=== PATIENT | female | born 1965 | race African-American/Black ===

== ENCOUNTER 2016-06-28 14:25 | Inpatient (IN) | payer OTHER ==
[2016-06-28 16:48] VITALS: BMI 24.3
--- NOTE | 2016-06-28 18:12 | HP ---
CIWA Score - CIWA Score Nausea/Vomitin Muscle Tremors: 3 Anxiety: 4-Mod. Anxious/Guarded Agitation: 4-Moderately Restless Paroxysmal Sweats: 1-Minimal Palms Moist Orientation: 1-Uncertain about Date Tacttile Disturbances: 3-Moderate Itch/Numb/Burn Auditory Disturbances: 0-None Visual Disturbances: 0-None Headache: 0-None Present CIWA-Ar Total Score: 18 Admission ROS BHS - HPI Chief Complaint: withdrawal sx Allergies/Adverse Reactions: Allergies Allergy/AdvReac Type Severity Reaction Status Date / Time Penicillins Allergy Verified 06/28/16 18:32 History of Present Illness: 50 years old female with long history of alcohol nicotine dependence has asthma arthritis of the knee, diabetes ii hypertension dry skin and bipolar is, longest sobriety 8 years admitted to detox Exam Limitations: No Limitations - Ebola screening Have you traveled outside of the country in the last 21 days: No Have you had contact with anyone from an Ebola affected area: No Have you been sick,other than usual withdrawal symptoms: No Do you have a fever: No - Review of Systems Constitutional: Chills, Loss of Appetite, Changes in sleep, Unintentional Wgt. Loss EENT: reports: Other (eye glasses) Respiratory: reports: SOB with Exertion Cardiac: reports: No Symptoms Reported GI: reports: Nausea, Poor Appetite, Poor Fluid Intake, Vomiting, Indigestion, Abdominal cramping : reports: No Symptoms Reported Musculoskeletal: reports: Back Pain, Joint Pain, Muscle Pain Integumentary: reports: Change in Color (hyperpigmentation patches), Pruritus Neuro: reports: Tremors Endocrine: reports: No Symptoms Reported Hematology: reports: No Symptoms Reported Psychiatric: reports: Judgement Intact, Depressed Other Systems: Reviewed and Negative Patient History - Patient Medical History Hx Anemia: No Hx Asthma: Yes Hx Chronic Obstructive Pulmonary Disease (COPD): Yes Hx Cancer: No Hx Cardiac Disorders: No Hx Congestive Heart Failure: No Hx Hypertension: Yes Hx Hypercholesterolemia: No Hx Pacemaker: No HX Cerebrovascular Accident: No Hx Seizures: No Hx Dementia: No Hx Diabetes: Yes Hx Gastrointestinal Disorders: Yes Hx Liver Disease: No Hx Genitourinary Disorders: No Hx Sexually Transmitted Disorders: No Hx Renal Disease (ESRD): No Hx Thyroid Disease: No Hx Human Immunodeficiency Virus (HIV): No Hx Hepatitis C: No Hx Depression: No Hx Suicide Attempt: Yes (2006 cut wrists) Hx Bipolar Disorder: Yes Hx Schizophrenia: No - Patient Surgical History Past Surgical History: Yes Hx Neurologic Surgery: No Hx Cataract Extraction: No Hx Cardiac Surgery: No Hx Lung Surgery: No Hx Breast Surgery: No Hx Breast Biopsy: No Hx Abdominal Surgery: No Hx Appendectomy: No Hx Cholecystectomy: No Hx Genitourinary Surgery: No Hx Section: No Hx Orthopedic Surgery: No (uterus fibroid removed 1998) Hx Hysterectomy: No Anesthesia Reaction: No - PPD History Previous Implant?: Yes Documented Results: Positive w/o proof Implanted On Prior R Admission?: No PPD to be Administered?: No - Reproductive History Patient is a Female of Child Bearing Age (11 -55 yrs old): Yes Last Menstrual Period: 06/25/16 Patient : No - Smoking Cessation Smoking history: Current every day smoker Have you smoked in the past 12 months: Yes Aproximately how many cigarettes per day: 20 Cigars Per Day: 0 Hx Chewing Tobacco Use: No Initiated information on smoking cessation: Yes 'Breaking Loose' booklet given: 06/28/16 - Substance & Tx. History Hx Alcohol Use: Yes Hx Substance Use: Yes Substance Use Type: Alcohol, Cocaine Hx Substance Use Treatment: Yes - Substances Abused Alcohol Route: Oral Frequency: Daily Amount used: 2 L volka Age of first use: 22 Date of Last Use: 06/28/16 Family Disease History - Family Disease History Family Disease History: Diabetes: Mother (), CA: Mother, Other: Sister ( lupus) Admission Physical Exam BHS - Vital Signs Vital Signs: Vital Signs - 24 hr 06/28/16 16:46 Temperature 97.4 F L Pulse Rate 95 H Respiratory 18 Rate Blood Pressure 167/99 - Physical General Appearance: Yes: Appropriately Dressed, Moderate Distress, Thin, Tremorous, Irritable, Sweating, Anxious HEENTM: Yes: Hearing grossly Normal, Normal ENT Inspection, Normocephalic, Normal Voice Respiratory: Yes: Chest Non-Tender, Lungs Clear, Normal Breath Sounds, No Respiratory Distress, No Accessory Muscle Use Neck: Yes: Supple, Trachea in good position Breast: Yes: Breasts Symetrical Cardiology: Yes: Regular Rhythm, Regular Rate, S1, S2 Abdominal: Yes: Non Tender, Soft, Decreased BS Genitourinary: Yes: Within Normal Limits Back: Yes: Normal Inspection Musculoskeletal: Yes: full range of Motion, Gait Steady, Back pain, Muscle Pain (knees) Extremities: Yes: Normal Inspection, Normal Range of Motion, Non-Tender, Tremors Neurological: Yes: Alert, Motor Strength 5/5, Normal Response, Depressed Affect Integumentary: Yes: Dry, Warm, Other (multiple hyperpigmented patches on extremities) Lymphatic: Yes: Within Normal Limits - Diagnostic (1) Alcohol dependence with uncomplicated withdrawal Current Visit: Yes Status: Acute (2) Nicotine dependence Current Visit: Yes Status: Acute Qualifiers: Nicotine product type: cigarettes Substance use status: uncomplicated Qualified Code(s): F17.210 - Nicotine dependence, cigarettes, uncomplicated (3) Asthma Current Visit: Yes Status: Acute Qualifiers: Asthma severity: mild intermittent Asthma complication type: with status asthmaticus Qualified Code(s): J45.22 - Mild intermittent asthma with status asthmaticus (4) Arthritis Current Visit: Yes Status: Acute (5) Diabetes mellitus type II, controlled Current Visit: Yes Status: Acute Qualifiers: Diabetes mellitus complication status: without complication Diabetes mellitus jail insulin use: without equipment operator intermodal yard use Qualified Code(s): E11.9 - Type 2 diabetes mellitus without complications (6) Hypertension Current Visit: Yes Status: Acute Qualifiers: Hypertension type: essential hypertension Qualified Code(s): I10 - Essential (primary) hypertension (7) Dry skin dermatitis Current Visit: Yes Status: Acute (8) Constipation Current Visit: Yes Status: Acute Qualifiers: Constipation type: slow transit constipation Qualified Code(s): K59.01 - Slow transit constipation (9) Weight loss Current Visit: Yes Status: Acute (10) Bipolar II disorder, mild, depressed, with anxious distress, in partial remission Current Visit: Yes Status: Suspected Comment: patient was doing well with paxil changed to topamax "does not work for me" "I began to drink alcohol" Cleared for Admission [facility] - Detox or Rehab [facility] Level of Care: Medically Managed Detox Regimen/Protocol: Librium S Breath Alcohol Content Breath Alcohol Content: 0 Urine Drug Screen - Results Drug Screen Negative: No Urine Drug Screen Results: OSWALDO-Cocaine, TCA-Tricyclic Antidepress
[2016-06-28] MEDS ORDERED: MAGNESIUM HYDROX 2400MG/30ML ORAL SUSPENSION 30 ML CUP PO PRN (18:30)
[2016-06-28] MEDS ORDERED: MENTHOL/PHENOL 1 EACH UD MM PRN (18:30)
[2016-06-28] MEDS ORDERED: MAG HYDROX/AL HYDROX/SIMETH 30 ML UNIT-DOSE CUP PO PRN (18:30)
[2016-06-28] MEDS ORDERED: ACETAMINOPHEN 325 MG TABLET (FP) PO PRN (18:30)
[2016-06-28] MEDS ORDERED: guaiFENesin/D-METHORPHAN HB 10 ML UNIT-DOSE CUPS PO PRN (18:30)
[2016-06-28] MEDS ORDERED: MAGNESIUM CITRATE 300 ML BOTTLE PO PRN (18:30)
[2016-06-28] MEDS ORDERED: hydrOXYzine PAMOATE 50 MG CAPSULE (FP) PO PRN (18:30)
[2016-06-28] MEDS ORDERED: P-EPHED 60MG/TRIPROLIDI 2.5MG TABLET PO PRN (18:30)
[2016-06-28] MEDS ORDERED: LOPERAMIDE HCL 2 MG CAPSULE PO PRN (18:30)
[2016-06-28] MEDS ORDERED: chlordiazePOXIDE HCL 25 MG CAPSULE PO PRN (18:30)
[2016-06-28] MEDS ORDERED: ALBUTEROL SO4 2.5/IPRATROPIUM 0.5 INH SOL 3 ML VIAL.NEB. NEB PRN (18:34)
[2016-06-28] MEDS ORDERED: ALBUTEROL SO4 6.7 GM HFA INHALER IH PRN (18:34)
[2016-06-28] MEDS ORDERED: cloNIDine HCL 0.1 MG TABLET PO PRN (18:38)
[2016-06-28] MEDS ORDERED: COLLOIDAL OATMEAL 1 BAR EACH TP PRN (18:52)
[2016-06-28] MEDS ORDERED: chlordiazePOXIDE HCL 25 MG CAPSULE PO ONE (19:00)
[2016-06-28] MEDS ORDERED: diphenhydrAMINE HCL 50 MG CAPSULE PO PRN (22:00)
[2016-06-28] MEDS: METOPROLOL TARTRATE 25 MG TABLET (FP) PO SCH (22:08)
[2016-06-28] MEDS: CYCLOBENZAPRINE HCL 10 MG TABLET (FP) PO PRN (22:08)
[2016-06-28] MEDS: NAPROXEN 500 MG TABLET (FP) PO PRN (22:09)
[2016-06-28] MEDS: chlordiazePOXIDE HCL 25 MG CAPSULE PO SCH (22:09)
[2016-06-28] MEDS: RANITIDINE HCL 150 MG TABLET (FP) PO SCH (22:09)
[2016-06-28] MEDS: THIAMINE HCL 100 MG TABLET (FP) PO SCH (22:09)
[2016-06-28] MEDS: MINERAL OIL/PETROLAT/WATER TOPICAL CREAM 113 GM JAR TP SCH (22:10)
[2016-06-28 23:31] LABS: URINE APPEARANCE CLEAR; URINE BILIRUBIN NEGATIVE (NEGATIVE); URINE BLOOD NEGATIVE (NEGATIVE); URINE COLOR LT. YELLOW; URINE GLUCOSE (UA) NEGATIVE (NEGATIVE); URINE KETONE NEGATIVE (NEGATIVE); URINE PROTEIN NEGATIVE (NEGATIVE); URINE UROBILINOGEN 0.2 E.U/dl E.U./dl (0.2-1.0)
[2016-06-28 23:34] LABS: URINE LEUK ESTERASE TRACE (NEGATIVE); URINE NITRITE POSITIVE (NEGATIVE)
[2016-06-28 23:38] LABS: URINE BACTERIA RARE /hpf (NONE SEEN); URINE MUCUS RARE; URINE RBC 2 /hpf (0-3); URINE WBC 6 /hpf (3-5)
[2016-06-29] MEDS: chlordiazePOXIDE HCL 25 MG CAPSULE PO SCH ×4 (05:13→22:12)
[2016-06-29] MEDS: MINERAL OIL/PETROLAT/WATER TOPICAL CREAM 113 GM JAR TP SCH ×3 (07:31→22:13)
[2016-06-29] MEDS: metFORMIN HCL 500 MG TABLET (FP) PO SCH ×2 (07:45→17:25)
--- NOTE | 2016-06-29 09:09 | CONSULT ---
[facility] Psychiatric Consult - Data Date of interview: 06/29/16 Admission source: [facility] Identifying data: This is 50 years old female with no psychiatric hospitalization history intoxicated with Alcohol and Nicotine Substance Abuse History: - Smoking Cessation. Smoking history: Current every day smoker. Have you smoked in the past 12 months: Yes. Aproximately how many cigarettes per day: 20. Cigars Per Day: 0. Hx Chewing Tobacco Use: No. Initiated information on smoking cessation: Yes. 'Breaking Loose' booklet given : 06/28/16. - Substance & Tx. History. Hx Alcohol Use: Yes. Hx Substance Use : Yes. Substance Use Type: Alcohol, Cocaine. Hx Substance Use Treatment: Yes. - Substances Abused. Alcohol. Route: Oral. Frequency: Daily. Amount used: 2 L volka. Age of first use: 22. Date of Last Use: 06/28/16 Medical History: Asthma, DM-2, HTN, Weight loss Psychiatric History: Patient reports history of Bipolar disorder, reports taking preior to admission: Seroquel 200mg po qhs. Ambien 10mg po qhs Physical/Sexual Abuse/Trauma History: Denies Additional Comment: Seroquel 200mg po qhs. Ambien 10mg po qhs Mental Status Exam - Mental Status Exam Alert and Oriented to: Person Cognitive Function: Fair Mood: Sad Affect: Flat Patient Behavior: Sedated Speech Pattern: Delayed Voice Loudness: Mildly Soft/Quiet Thought Process: Circumstantial Thought Disorder: Being Controlled Hallucinations: Denies Suicidal Ideation: Denies Homicidal Ideation: Denies Insight/Judgement: Fair Sleep: Difficulty falling asleep Appetite: Weight loss Muscle strength/Tone: Mild Hypotonicity Gait/Station: Shuffling Additional Comments: Seroquel 200mg po qhs. Ambien 10mg po qhs Psychiatric Findings - Problem List ([place] 1, 2,3) (1) Alcohol dependence with uncomplicated withdrawal Current Visit: Yes Status: Acute (2) Nicotine dependence Current Visit: Yes Status: Acute Qualifiers: Nicotine product type: cigarettes Substance use status: uncomplicated Qualified Code(s): F17.210 - Nicotine dependence, cigarettes, uncomplicated (3) Bipolar II disorder, mild, depressed, with anxious distress, in partial remission Current Visit: Yes Status: Suspected Comment: patient was doing well with paxil changed to topamax "does not work for me" "I began to drink alcohol" (4) Drug-induced mood disorder Current Visit: Yes Status: Acute - Initial Treatment Plan Initial Treatment Plan: Seroquel 200mg po qhs. Ambien 10mg po qhs
[2016-06-29 10:09] LABS: MCH 21.5 pg (25.7-33.7); MCHC 31.1 g/dl (32.0-36.0); MEAN CELL VOLUME 69.4 fl (80-96); MEAN PLT VOLUME 9.3 fl (7.5-11.1); PLATELET COUNT 235 K/MM3 (134-434); RDW 21.5 % (11.6-15.6); WHITE BLOOD COUNT 4.7 K/mm3 (4.0-10.0)
[2016-06-29 10:24] LABS: HIV 1 & 2 AB NEGATIVE; HIV 1 AGp24 NEGATIVE
[2016-06-29] MEDS: RANITIDINE HCL 150 MG TABLET (FP) PO SCH ×2 (10:25→22:11)
[2016-06-29] MEDS: CYCLOBENZAPRINE HCL 10 MG TABLET (FP) PO PRN (10:25)
[2016-06-29] MEDS: METOPROLOL TARTRATE 25 MG TABLET (FP) PO SCH ×2 (10:25→22:11)
[2016-06-29] MEDS: PRENATAL VITAMINS W/ FOLIC ACID TABLET (FP) PO SCH (10:25)
[2016-06-29] MEDS: NAPROXEN 500 MG TABLET (FP) PO PRN (10:25)
[2016-06-29] MEDS: NICOTINE 21 MG/24 HOURS TOPICAL PATCH TD SCH (10:26)
--- NOTE | 2016-06-29 10:26 | EKG ---
Test Reason : Blood Pressure : / mmHG Vent. Rate : 094 BPM Atrial Rate : 094 BPM P-R Int : 118 ms QRS Dur : 070 ms QT Int : 346 ms P-R-T Axes : 067 067 051 degrees QTc Int : 432 ms POOR DATA QUALITY, INTERPRETATION MAY BE ADVERSELY AFFECTED NORMAL SINUS RHYTHM BIATRIAL ENLARGEMENT ABNORMAL ECG NO PREVIOUS ECGS AVAILABLE Confirmed by TRISHA ESPANA, AYLIN ([id number]) on 06/29/2016 10:25:49 AM Referred By: Xavier Noriega Confirmed By:AYLIN RICO MD
[2016-06-29] MEDS: ONDANSETRON *ODT* 4 MG TABLET SL PRN (10:29)
[2016-06-29 10:33] LABS: ALK PHOS 100 U/L (45-117); ANION GAP 6 (8-16); BILIRUBIN,TOTAL 0.5 mg/dL (0.2-1.0); CALCIUM 9.2 mg/dL (8.5-10.1); CO2 24 mmol/L (21-32); CREATININE 0.7 mg/dL (0.55-1.02); GLUCOSE,RANDOM 95 mg/dL (74-106); SGOT/AST 10 U/L (15-37); SGPT/ALT 13 U/L (12-78); TOT PROT 6.2 g/dl (6.4-8.2)
--- NOTE | 2016-06-29 10:47 | PN ---
[facility] CIWA - CIWA Score Nausea/Vomitin-No Nausea/No Vomiting Muscle Tremors: 4-Moderate,w/Arms Extend Anxiety: 3 Agitation: 4-Moderately Restless Paroxysmal Sweats: 3 Orientation: 0-Oriented Tacttile Disturbances: 0-None Auditory Disturbances: 0-None Visual Disturbances: 0-None Headache: 1-Very Mild CIWA-Ar Total Score: 15 BHS Progress Note (SOAP) Subjective: sweats shakes body aches interrupted sleep Objective: 06/29/16 10:33 Vital Signs Temperature 97.5 F L 06/29/16 10:00 Pulse Rate 75 06/29/16 10:00 Respiratory Rate 18 06/29/16 10:00 Blood Pressure 130/86 06/29/16 10:00 O2 Sat by Pulse Oximetry (%) Laboratory Tests 06/28/16 06/29/16 06/29/16 23:00 05:12 07:30 Sodium 140 Potassium 3.6 Chloride 110 H POC Glucometer 102 Urine Color Lt. yellow Urine Appearance Clear Urine pH 7.0 Ur Specific [place] 1.015 Urine Protein Negative Urine Glucose (UA) Negative Urine Ketones Negative Urine Blood Negative Urine Nitrite Positive Urine Bilirubin Negative Urine Urobilinogen 0.2 e.u/dl Ur Leukocyte Esterase Trace H Urine RBC 2 Urine WBC 6 Ur Epithelial Cells Many Urine Bacteria Rare Urine Mucus Rare HIV 1&2 Antibody Screen HIV P24 Antigen 06/29/16 07:30 Sodium Potassium Chloride POC Glucometer Urine Color Urine Appearance Urine pH Ur Specific [place] Urine Protein Urine Glucose (UA) Urine Ketones Urine Blood Urine Nitrite Urine Bilirubin Urine Urobilinogen Ur Leukocyte Esterase Urine RBC Urine WBC Ur Epithelial Cells Urine Bacteria Urine Mucus HIV 1&2 Antibody Screen Negative HIV P24 Antigen Negative labs pending awake/alert ambulating no acute distress Assessment: 06/29/16 10:47 withdrawal sx Plan: continue detox increase fluids f/u pending labs
[2016-06-29 11:50] LABS: POLYCHROMASIA FEW
[2016-06-29 11:51] LABS: ANISOCYTOSIS 2+; HYPOCHROMIA 2+; MICROCYTOSIS 1+; TARGET CELLS FEW
[2016-06-29] MEDS: PSYLLIUM 5.85 GM PACKET PO SCH (12:34)
[2016-06-29] MEDS: NICOTINE POLACRILEX 2 MG GUM BUC PRN (21:48)
[2016-06-29] MEDS: QUEtiapine FUMARATE 200 MG TABLET PO SCH (22:11)
[2016-06-29] MEDS: THIAMINE HCL 100 MG TABLET (FP) PO SCH (22:12)
[2016-06-30] MEDS: MINERAL OIL/PETROLAT/WATER TOPICAL CREAM 113 GM JAR TP SCH ×3 (02:00→22:22)
[2016-06-30] MEDS: chlordiazePOXIDE HCL 25 MG CAPSULE PO SCH ×3 (05:20→17:29)
[2016-06-30] MEDS: metFORMIN HCL 500 MG TABLET (FP) PO SCH ×2 (07:48→17:28)
--- NOTE | 2016-06-30 09:45 | PN ---
[facility] CIWA - CIWA Score Nausea/Vomitin Muscle Tremors: 3 Anxiety: 2 Agitation: 2 Paroxysmal Sweats: 3 Orientation: 0-Oriented Tacttile Disturbances: 1-Very Mild Itch/Numbness Auditory Disturbances: 0-None Visual Disturbances: 0-None Headache: 0-None Present CIWA-Ar Total Score: 13 [facility] Progress Note (SOAP) Subjective: feeling better, lbp, constipated Objective: 06/30/16 09:45 Laboratory Tests 06/28/16 06/29/16 06/29/16 23:00 05:12 07:30 WBC 4.7 RBC 3.83 Hgb 8.3 L Hct 26.6 L MCV 69.4 L MCHC 31.1 L RDW 21.5 H Plt Count 235 MPV 9.3 Polychromasia Few Hypochromic-Microcytic 2+ Anisocytosis 2+ Microcytosis 1+ Target Cells Few Sodium Potassium Chloride Carbon Dioxide Anion Gap BUN Creatinine Creat Clearance w eGFR POC Glucometer 102 Random Glucose Calcium Total Bilirubin AST ALT Alkaline Phosphatase Total Protein Albumin Urine Color Lt. yellow Urine Appearance Clear Urine pH 7.0 Ur Specific [place] 1.015 Urine Protein Negative Urine Glucose (UA) Negative Urine Ketones Negative Urine Blood Negative Urine Nitrite Positive Urine Bilirubin Negative Urine Urobilinogen 0.2 e.u/dl Ur Leukocyte Esterase Trace H Urine RBC 2 Urine WBC 6 Ur Epithelial Cells Many Urine Bacteria Rare Urine Mucus Rare RPR Titer Hepatitis C Antibody HIV 1&2 Antibody Screen HIV P24 Antigen 06/29/16 06/29/16 06/29/16 07:30 07:30 07:30 WBC RBC Hgb Hct MCV MCHC RDW Plt Count MPV Polychromasia Hypochromic-Microcytic Anisocytosis Microcytosis Target Cells Sodium 140 Potassium 3.6 Chloride 110 H Carbon Dioxide 24 Anion Gap 6 L BUN 13 Creatinine 0.7 Creat Clearance w eGFR > 60 POC Glucometer Random Glucose 95 Calcium 9.2 Total Bilirubin 0.5 AST 10 L ALT 13 Alkaline Phosphatase 100 Total Protein 6.2 L Albumin 3.0 L Urine Color Urine Appearance Urine pH Ur Specific [place] Urine Protein Urine Glucose (UA) Urine Ketones Urine Blood Urine Nitrite Urine Bilirubin Urine Urobilinogen Ur Leukocyte Esterase Urine RBC Urine WBC Ur Epithelial Cells Urine Bacteria Urine Mucus RPR Titer Nonreactive Hepatitis C Antibody 0.2 HIV 1&2 Antibody Screen HIV P24 Antigen 06/29/16 06/29/16 07:30 16:46 WBC RBC Hgb Hct MCV MCHC RDW Plt Count MPV Polychromasia Hypochromic-Microcytic Anisocytosis Microcytosis Target Cells Sodium Potassium Chloride Carbon Dioxide Anion Gap BUN Creatinine Creat Clearance w eGFR POC Glucometer 120 Random Glucose Calcium Total Bilirubin AST ALT Alkaline Phosphatase Total Protein Albumin Urine Color Urine Appearance Urine pH Ur Specific [place] Urine Protein Urine Glucose (UA) Urine Ketones Urine Blood Urine Nitrite Urine Bilirubin Urine Urobilinogen Ur Leukocyte Esterase Urine RBC Urine WBC Ur Epithelial Cells Urine Bacteria Urine Mucus RPR Titer Hepatitis C Antibody HIV 1&2 Antibody Screen Negative HIV P24 Antigen Negative Vital Signs Temperature 96.4 F L 06/30/16 05:48 Pulse Rate 76 06/30/16 05:48 Respiratory Rate 18 06/30/16 05:48 Blood Pressure 105/76 06/30/16 05:48 O2 Sat by Pulse Oximetry (%) 06/30/16 14:40 pt aox3 in nad ambulating Assessment: 06/30/16 09:45 withdrawl sx;s 06/30/16 14:41 Plan: cont. detox increase fluids mom
[2016-06-30] MEDS: NAPROXEN 500 MG TABLET (FP) PO PRN (10:24)
[2016-06-30] MEDS: ONDANSETRON *ODT* 4 MG TABLET SL PRN (10:24)
[2016-06-30] MEDS: PRENATAL VITAMINS W/ FOLIC ACID TABLET (FP) PO SCH (10:24)
[2016-06-30] MEDS: CYCLOBENZAPRINE HCL 10 MG TABLET (FP) PO PRN (10:24)
[2016-06-30] MEDS: RANITIDINE HCL 150 MG TABLET (FP) PO SCH ×2 (10:24→22:19)
[2016-06-30] MEDS: METOPROLOL TARTRATE 25 MG TABLET (FP) PO SCH ×2 (10:24→22:19)
[2016-06-30] MEDS: NICOTINE 21 MG/24 HOURS TOPICAL PATCH TD SCH (10:25)
[2016-06-30] MEDS: PSYLLIUM 5.85 GM PACKET PO SCH (10:25)
[2016-06-30] MEDS: NICOTINE POLACRILEX 2 MG GUM BUC PRN ×2 (10:29→22:23)
[2016-06-30] MEDS: THIAMINE HCL 100 MG TABLET (FP) PO SCH (22:19)
[2016-06-30] MEDS: QUEtiapine FUMARATE 200 MG TABLET PO SCH (22:20)
[2016-06-30] MEDS: ZOLPIDEM TARTRATE 10 MG TABLET (PARK CARE ONLY) PO PRN (22:39)
[2016-06-30] MEDS: chlordiazePOXIDE 5 MG CAPSULE PO SCH (22:41)
[2016-07-01] MEDS: chlordiazePOXIDE 5 MG CAPSULE PO SCH ×3 (05:25→17:43)
[2016-07-01] MEDS: MINERAL OIL/PETROLAT/WATER TOPICAL CREAM 113 GM JAR TP SCH ×3 (07:14→22:22)
[2016-07-01] MEDS: metFORMIN HCL 500 MG TABLET (FP) PO SCH ×2 (07:16→17:20)
--- NOTE | 2016-07-01 09:38 | PN ---
S Progress Note (SOAP) Subjective: ALERT,INTERRUPTED SLEEP,HISTORY OF ANEMIA NON COMPLIANCE WITH IRON PILL Objective: 07/01/16 09:35 Vital Signs Temperature 98.3 F 07/01/16 06:17 Pulse Rate 73 07/01/16 06:17 Respiratory Rate 18 07/01/16 06:17 Blood Pressure 117/74 07/01/16 06:17 O2 Sat by Pulse Oximetry (%) Assessment: 07/01/16 09:36 WITHDRAWAL SYMPTOM 07/01/16 09:37 07/01/16 09:37 LABS PENDING Plan: CONTINUE DETOX,DISCHARGE IN AM
[2016-07-01] MEDS: METOPROLOL TARTRATE 25 MG TABLET (FP) PO SCH ×2 (10:16→22:22)
[2016-07-01] MEDS: NAPROXEN 500 MG TABLET (FP) PO PRN (10:16)
[2016-07-01] MEDS: RANITIDINE HCL 150 MG TABLET (FP) PO SCH ×2 (10:16→22:22)
[2016-07-01] MEDS: PSYLLIUM 5.85 GM PACKET PO SCH (10:16)
[2016-07-01] MEDS: PRENATAL VITAMINS W/ FOLIC ACID TABLET (FP) PO SCH (10:16)
[2016-07-01] MEDS: NICOTINE 21 MG/24 HOURS TOPICAL PATCH TD SCH (10:17)
[2016-07-01] MEDS: NICOTINE POLACRILEX 2 MG GUM BUC PRN ×2 (10:21→19:53)
[2016-07-01 10:46] LABS: FERRITIN 7.716 ng/ml (6.9-282.5)
[2016-07-01] MEDS: FERROUS SO4 325 MG TABLET (FP) PO SCH ×2 (14:29→17:42)
[2016-07-01] MEDS: ZOLPIDEM TARTRATE 10 MG TABLET (PARK CARE ONLY) PO PRN (22:21)
[2016-07-01] MEDS: QUEtiapine FUMARATE 200 MG TABLET PO SCH (22:22)
[2016-07-01] MEDS: THIAMINE HCL 100 MG TABLET (FP) PO SCH (22:22)
[2016-07-01] MEDS: chlordiazePOXIDE HCL 10 MG CAPSULE PO SCH (22:36)
[2016-07-02 06:06] LABS: SERUM IRON 32 ug/dL (27-159); TOTAL IRON BINDING CAPACITY 355 ug/dL (250-450); UIBC 323 ug/dL (131-425)
[2016-07-02] MEDS: metFORMIN HCL 500 MG TABLET (FP) PO SCH (06:12)
[2016-07-02] MEDS: chlordiazePOXIDE HCL 10 MG CAPSULE PO SCH (06:13)
[2016-07-02] MEDS: MINERAL OIL/PETROLAT/WATER TOPICAL CREAM 113 GM JAR TP SCH (06:14)
[2016-07-02] MEDS: FERROUS SO4 325 MG TABLET (FP) PO SCH (07:56)
--- NOTE | 2016-07-02 08:20 | PN ---
S Progress Note (SOAP) Subjective: ALERT,NO COMPLAINT Objective: 07/02/16 08:19 Vital Signs Temperature 97.9 F 07/02/16 06:00 Pulse Rate 78 07/02/16 06:00 Respiratory Rate 18 07/02/16 06:00 Blood Pressure 138/89 07/02/16 06:00 O2 Sat by Pulse Oximetry (%) 07/02/16 08:19 Assessment: 07/02/16 08:19 DETOX COMPLETED,NO WITHDRAWAL SYMPTOM Plan: DISCHARGE TODAY,FOLLOW IP WITH AFTER CARE PROGRAM ARRANGEMENT
--- NOTE | 2016-07-02 08:23 | DS ---
[facility] Detox Discharge Summary Admission Date: 06/28/16 Discharge Date: 07/02/16 - History Present History: Alcohol Dependence Pertinent Past History: ASTHMA ARTHRITIS TYPE 2 DM HYPERTENSION ANEMIA BIPOLAR DISORDER - Physical Exam Results Vital Signs: Vital Signs Temperature 97.9 F 07/02/16 06:00 Pulse Rate 78 07/02/16 06:00 Respiratory Rate 18 07/02/16 06:00 Blood Pressure 138/89 07/02/16 06:00 O2 Sat by Pulse Oximetry (%) - Treatment Hospital Course: Detox Protocol Followed, Detoxed Safely, Responded well, Discharged Condition Good Patient has Accepted a Rehab Referral to: FOLLOW UP WITH AFTER CARE PROGRAM ARRANGEMENT AND PMD FOR MEDICAL PROBLE - Medication Discharge Medications: Ambulatory Orders Diphenhydramine HCl [Benadryl -] 25 mg PO PRN 06/28/16 Metformin HCl [Glucophage -] 500 mg PO DAILY 06/28/16 Metoprolol Tartrate [Lopressor -] 25 mg PO BID 06/28/16 Naltrexone HCl [Revia -] 50 mg PO DAILY 06/28/16 Naproxen Sodium [Naproxen Sodium Cr] 500 mg PO PRN 06/28/16 Quetiapine Fumarate [Seroquel -] 200 mg PO HS 06/28/16 Topiramate [Topamax] 25 mg PO BID 06/28/16 Zolpidem Tartrate [Ambien] 10 mg PO DAILY 06/28/16 Quetiapine Fumarate [Seroquel -] 200 mg PO HS #30 tab 06/29/16 Zolpidem Tartrate [Ambien] 0 mg PO HS #14 tablet MDD 10 06/29/16
[2016-07-02 10:22] VITALS: BP 146/85; PULSE 86; TEMP 97.2
== END 2016-07-02 09:38 | disposition home or self-care (01) | DRG 775 ==
LOC: YASAS 14:25 → Y6N 18:44
PROVIDERS: ADMIT Internal Medicine Addiction Medicine; ATTEND Internal Medicine Addiction Medicine
PROC: HZ2ZZZZ Detoxification Services for Substance Abuse Treatment (ICD-10-PCS; principal; 2016-06-28)
DX: F10.230 Alcohol dependence with withdrawal, uncomplicated (principal); F17.210 Nicotine dependence, cigarettes, uncomplicated; F19.24 Other psychoactive substance dependence with psychoactive substance-induced mood disorder; F31.75 Bipolar disorder, in partial remission, most recent episode depressed; J45.909 Unspecified asthma, uncomplicated; J44.9 Chronic obstructive pulmonary disease, unspecified; E11.9 Type 2 diabetes mellitus without complications; I10 Essential (primary) hypertension; D64.9 Anemia, unspecified; M12.9 Arthropathy, unspecified; L85.3 Xerosis cutis; Z87.898 Personal history of other specified conditions; Z91.5 Personal history of self-harm
CPT/HCPCS: 36415; 71020-TC; 80053; 81003; 81015; 82607; 82728; 82746; 83540; 83550; 84450; 84460; 85027; 86593; 86803; 87389; 93005; 93010